=== PATIENT | female | born 2000 | race Caucasian/White ===

== ENCOUNTER 2022-09-29 14:44 | Outpatient (CLI) | payer OTHER | END 2022-09-29 15:42 | disposition home or self-care (01) | LOC: RAD 14:44 | PROVIDERS: ATTEND Specialist | DX: R59.1 Generalized enlarged lymph nodes (principal) ==

== ENCOUNTER 2022-10-01 10:13 | Outpatient (CLI) | payer OTHER | END 2022-10-01 10:19 | disposition home or self-care (01) | LOC: SONOGRAMA 10:13 | PROVIDERS: ATTEND Pathology Anatomic Pathology & Clinical Pathology | DX: R59.0 Localized enlarged lymph nodes (principal) ==